=== PATIENT | male | born 1965 | race African-American/Black ===

== ENCOUNTER 2021-02-20 21:54 | Inpatient (IN) | payer OTHER ==
[2021-02-20] MEDS ORDERED: ACETAMINOPHEN 325 MG TABLET (FP) PO PRN ×2 (22:38)
[2021-02-20] MEDS ORDERED: MAG HYDROX/AL HYDROX/SIMETH 30 ML UNIT-DOSE CUP PO PRN (22:38)
[2021-02-20] MEDS ORDERED: METHOCARBAMOL 500 MG TABLET PO PRN (22:38)
[2021-02-20] MEDS ORDERED: MAGNESIUM CITRATE 300 ML BOTTLE PO PRN (22:38)
[2021-02-20] MEDS ORDERED: BISMUTH SUBSALICYLATE 524 MG/30 ML PO PRN (22:38)
[2021-02-20] MEDS ORDERED: ONDANSETRON *ODT* 4 MG TABLET SL PRN (22:38)
[2021-02-20] MEDS ORDERED: IBUPROFEN 400 MG TABLET (FP) PO PRN (22:38)
[2021-02-20] MEDS ORDERED: MENTHOL/PHENOL 1 EACH UD MM PRN (22:38)
[2021-02-20] MEDS ORDERED: MAGNESIUM HYDROX 2400MG/30ML ORAL SUSPENSION 30 ML CUP PO PRN (22:38)
[2021-02-20] MEDS ORDERED: NICOTINE 10 MG CARTRIDGE (INHALER) IH PRN (22:38)
[2021-02-20] MEDS ORDERED: diazePAM 5 MG TABLET PO PRN (22:39)
[2021-02-20 22:52] VITALS: BMI 23.6
[2021-02-21] MEDS: hydrOXYzine PAMOATE 25 MG CAPSULE (FP) PO PRN ×2 (00:34→05:58)
[2021-02-21] MEDS ORDERED: diazePAM 5 MG TABLET PO PRN (09:57)
[2021-02-21] MEDS: PRENATAL VITAMINS W/ FOLIC ACID TABLET (FP) PO SCH (11:43)
[2021-02-21] MEDS: diazePAM 5 MG TABLET PO SCH ×3 (11:43→22:06)
[2021-02-21 11:52] LABS: HEMATOCRIT 38.9 % (35.4-49); MCH 36.2 pg (25.7-33.7); MCHC 33.4 g/dl (32.0-35.9); MEAN CELL VOLUME 108.5 fl (80-96); MEAN PLT VOLUME 8.8 fl (7.5-11.1); PLATELET COUNT 185 10^3/uL (134-434); RBC 3.58 M/mm3 (4.00-5.60); RDW 14.3 % (11.9-15.9); WHITE BLOOD COUNT 4.5 K/mm3 (4.0-10.0)
[2021-02-21 12:11] LABS: CALCIUM 8.4 mg/dL (8.5-10.1)
[2021-02-21 12:12] LABS: ALBUMIN 2.8 g/dl (3.4-5.0); BLOOD UREA NITROGEN 12.9 mg/dL (7-18)
[2021-02-21 12:15] LABS: CREATININE 0.8 mg/dL (0.55-1.3)
[2021-02-21 12:17] LABS: BILIRUBIN,TOTAL 0.4 mg/dL (0.2-1); TOT PROT 5.8 g/dl (6.4-8.2)
[2021-02-21] MEDS ORDERED: MELATONIN 5 MG TABLETS PO SCH (22:00)
[2021-02-21] MEDS ORDERED: THIAMINE HCL 100 MG TABLET (FP) PO SCH (22:00)
[2021-02-22] MEDS: diazePAM 5 MG TABLET PO SCH ×3 (07:47→17:22)
[2021-02-22] MEDS: PRENATAL VITAMINS W/ FOLIC ACID TABLET (FP) PO SCH (11:06)
[2021-02-22 17:43] VITALS: BP 112/56; PULSE 61; TEMP 98
[2021-02-23] MEDS ORDERED: diazePAM 5 MG TABLET PO SCH (06:00)
[2021-02-24] MEDS ORDERED: diazePAM 5 MG TABLET PO SCH (06:00)
[2021-02-25] MEDS ORDERED: diazePAM 5 MG TABLET PO ONE (06:00)
== END 2021-02-22 19:57 | disposition left against medical advice (07) | DRG 770 ==
LOC: YASAS 21:54 → Y3N 23:25
PROVIDERS: ADMIT Allergy & Immunology; ATTEND Allergy & Immunology
PROC: HZ2ZZZZ Detoxification Services for Substance Abuse Treatment (ICD-10-PCS; principal; 2021-02-20)
DX: F10.230 Alcohol dependence with withdrawal, uncomplicated (principal); F17.210 Nicotine dependence, cigarettes, uncomplicated; Z59.00 Homelessness unspecified
CPT/HCPCS: 36415; 71046-TC-FY; 80053; 85027; 86780; C9803; U0003; U0005